=== PATIENT | female | born 1930 | race Caucasian/White ===

== ENCOUNTER 2017-09-17 18:37 | Emergency (ER) | payer MEDICARE ==
[2017-09-17 18:57] VITALS: BP 163/80
[2017-09-17] MEDS ORDERED: Ketorolac 60 MG/2 ML SDV IM ONE (19:19)
[2017-09-17] MEDS ORDERED: Ketorolac 30 MG/ML SDV IM ONE (19:34)
[2017-09-17] MEDS ORDERED: Clindamycin HCl 150 MG Cap PO ONE (20:05)
--- NOTE | 2017-09-17 20:17 | EDM.PDOC ---
ED HPI GENERAL MEDICAL PROBLEM - General Chief Complaint: ENT Problem Stated Complaint: MOUTH SWOLLEN Time Seen by Provider: 09/17/17 18:52 Source of Information: Reports: Patient History Limitations: Reports: No Limitations - History of Present Illness INITIAL COMMENTS - FREE TEXT/NARRATIVE: 87 yo presents with left lower jaw swelling and pain. pain started last evening with swelling throughout the day. Pt does have partial plate bottom dentures, she has one left canine anchor tooth with multiple caries. she does have establish care with a dentist. afebrile. generally feels well Left Face Pain Score (Numeric/FACES): 10 - Related Data Allergies Allergy/AdvReac Type Severity Reaction Status Date / Time zolpidem tartrate Allergy Confusion Verified 07/03/15 15:15 [From Kaitlyn] Home Meds: Home Meds Albuterol [Proair HFA] 8.5 gm INH BID 10/20/13 [History] Alendronate Sodium [Alendronate] 70 mg PO WEEKLY 10/20/13 [History] Levothyroxine [Sythroid] 88 mcg PO DAILY 10/20/13 [History] Metoprolol Tartrate [Lopressor] 25 mg PO BID 10/20/13 [History] Omeprazole 40 mg PO ASDIRECTED 10/20/13 [History] Aspirin [Halfprin] 81 mg PO DAILY 07/03/15 [History] Calcium Carbonate/Vitamin D3 [Calcium 600 + Vit D 400 Softgl] 2 tab PO DAILY 04/07 [History] Cholecalciferol (Vitamin D3) [Vitamin D3] 1,000 units PO DAILY 07/03/15 [History ] Escitalopram Oxalate 10 mg PO DAILY 07/03/15 [History] Estrogens, Conjugated [Premarin Vaginal Crm] 1 applic TOP ASDIRECTED 07/03/15 [ History] Ferrous Sulfate 325 mg PO DAILY 07/03/15 [History] Fluocinolone Acetonide [Synalar] 1 applic TOP BID 07/03/15 [History] Hydrocodone/Acetaminophen [Hydrocodon-Acetaminophen 5-325] 1 tab PO Q4H PRN 04/07 [History] Hydroxocobalamin 1 injection IM ASDIRECTED 07/03/15 [History] Ibuprofen 800 mg PO Q4H PRN 07/03/15 [History] atorvaSTATin [Lipitor] 10 mg PO DAILY 07/03/15 [History] metroNIDAZOLE [Metrogel] 1 applic TOP BID 07/03/15 [History] Past Medical History HEENT History: Reports: Cataract Cardiovascular History: Reports: Hypertension Respiratory History: Reports: COPD Gastrointestinal History: Reports: GERD Psychiatric History: Reports: Depression Endocrine/Metabolic History: Reports: Hypothyroidism Dermatologic History: Reports: Other (See Below) Other Dermatologic History: rosecea - Infectious Disease History Infectious Disease History: Reports: Chicken Pox, Measles, Mumps - Past Surgical History HEENT Surgical History: Reports: Eye Surgery Female Surgical History: Reports: Hysterectomy, Other (See Below) Social & Family History - Tobacco Use Smoking Status *Q: Current Every Day Smoker Years of Tobacco use: 50 Packs/Tins Daily: 1 - Caffeine Use Caffeine Use: Reports: Coffee - Recreational Drug Use Recreational Drug Use: No ED ROS ENT - Review of Systems Review Of Systems: See Below Constitutional: Denies: Fever, Chills HEENT: Reports: Dental Pain. Denies: Sinus Problem Respiratory: Denies: Shortness of Breath, Wheezing Cardiovascular: Denies: Chest Pain ED EXAM, ENT - Physical Exam Exam: See Below Exam Limited By: No Limitations General Appearance: Alert, WD/WN, No Apparent Distress Ears: Normal External Exam, Normal Canal, Hearing Grossly Normal, Normal TMs Nose: Normal Inspection, Normal Mucousa Mouth/Throat: Dental Abcess, Dental Pain (left canine anchor tooth with multiple caries), Gum Swelling (left lower). No: Bleeding, Dental Trauma Head: Atraumatic, Normocephalic Neck: Supple, Non-Tender, Lymphadenopathy (L). No: Lymphadenopathy (R) Respiratory/Chest: No Respiratory Distress, Lungs Clear, Normal Breath Sounds. No: Crackles, Rhonchi, Wheezing Cardiovascular: Regular Rate, Rhythm Neurological: Alert, Oriented Skin: Warm, Dry, Intact, No Rash Course - Vital Signs Last Recorded V/S: Last Vital Signs Temp 36.6 C 09/17/17 18:55 Pulse 73 09/17/17 18:55 Resp 16 09/17/17 18:55 BP 163/80 H 09/17/17 18:55 Pulse Ox 93 L 09/17/17 18:55 - Orders/Labs/Meds Meds: Medications Discontinued Medications Generic Name Dose Route Start Last Admin Trade Name Freq PRN Reason Stop Dose Admin Clindamycin HCl 150 mg 09/17/17 20:05 09/17/17 20:24 Cleocin PO 09/17/17 20:06 150 mg ONETIME ONE Administration Ketorolac Tromethamine 60 mg 09/17/17 19:19 Toradol IM 09/17/17 19:20 ONETIME ONE Ketorolac Tromethamine 30 mg 09/17/17 19:34 09/17/17 19:38 Toradol IM 09/17/17 19:35 30 mg ONETIME ONE Administration Departure - Departure Time of Disposition: 20:12 Disposition: Home, Self-Care 01 Condition: Good Clinical Impression: Dental caries, Dental abscess - Discharge Information Instructions: Dental Abscess Referrals: PCP,None [Primary Care Provider] - Forms: ED Department Discharge Additional Instructions: Follow-up with your dentist in the morning Clindamycin 150 mg three times per day Ibuprofen 400-600 mg every 6 hours us half tablet of Hydro for break through pain
== END 2017-09-17 20:31 | disposition home or self-care (01) ==
LOC: JP.ED 18:37
DX: K04.7 Periapical abscess without sinus (principal); K02.9 Dental caries, unspecified; J44.9 Chronic obstructive pulmonary disease, unspecified; F17.210 Nicotine dependence, cigarettes, uncomplicated; E03.9 Hypothyroidism, unspecified; Z79.899 Other long term (current) drug therapy; Z88.8 Allergy status to other drugs, medicaments and biological substances
CPT/HCPCS: 96372; 99283; A9270; J1885